=== PATIENT | male | born 1990 | race Caucasian/White ===

== ENCOUNTER 2018-11-19 18:43 | Emergency (ER) | payer OTHER ==
[2018-11-19 18:58] VITALS: BP 155/106
--- NOTE | 2018-11-19 19:26 | EDPHY ---
H & P Stated Complaint: L lower back pain, spasm Time Seen by Provider: 11/19/18 19:17 HPI/ROS: CHIEF COMPLAINT: Left paraspinous lumbar pain times 5 days HISTORY OF PRESENT ILLNESS: 28-year-old male generally healthy complaining of left paraspinous lumbar pain for the past 5 days after he slept on a futon. He woke with back pain which became progressively worse, exacerbated after snowboarding however no direct trauma or fall to his back. No paresthesia. No incontinence or retention. No saddle anesthesia. No radiculopathy. He has not taken any Tylenol Motrin for his discomfort. REVIEW OF SYSTEMS: PAST MEDICAL & SURGICAL HISTORY: No pertinent medical or surgical history SOCIAL HISTORY: Nonsmoker. PHYSICAL EXAM (Prior to examination, patient consented to physical exam, hands were washed and my usual and customary physical exam procedures followed) 1) GENERAL: Well-developed, well-nourished, alert and oriented. Appears uncomfortable when he is asked to move or perform range of motion at the waist. He prefers laying supine, flat. 2) HEAD: Normocephalic, atraumatic 3) HEENT: Pupils equal, round, reactive to light bilaterally. Sclera anicteric. Nasopharynx, oropharynx, clear, no lesions. 4) NECK: Full range of motion, no meningeal signs. 5) LUNGS: Clear auscultation bilaterally, no wheezes, no rhonchi, no retractions. 6) HEART: Regular rate and rhythm, no murmur, no heave, no gallop. 7) ABDOMEN: No guarding, no rebound, no focal tenderness, negative McBurney's, negative Savage's, negative Rovsing's, negative peritoneal sign, 8) MUSCULOSKELETAL: Moving all extremities, no focal areas of tenderness, no obvious trauma. No peripheral edema or discoloration. 9) BACK: tender to palpation left paraspinous muscle. No CVA tenderness, no midline vertebral tenderness, no fluctuance, no step-off, no obvious trauma, no visual or palpable abnormality. Patella, Achilles reflexes intact to bilateral strength 5/5 10) SKIN: No rash, no petechiae. 11) NEURO: Awake, alert, and oriented to person, place and time. Answers questions appropriately. There were no obvious focal neurologic abnormalities. No cerebellar dysfunction. Normal steady gait. Upper and lower extremities bilaterally with strength 5 / 5, reflexes 2+.. DIFFERENTIAL DIAGNOSIS: In no particular order, including but not limited to, fracture, sprain/strain, cauda equina, spinal infectious etiology. MEDICAL DECISION MAKING Lower index of suspicion for cauda equina, epidural abscess, epidural hematoma, lumbar myositis, diskitis, as the patient is neurologically intact in the lower extremities, has patella and Achilles reflexes intact and equal bilaterally, has no neurologic deficits, no incontinence, no retention, no midline pain, no fluctuance, afebrile, no flulike symptoms. Pain may be secondary to muscular strain, may be secondary to discogenic etiology. At this point I do not identify definitive indication for emergent MRI, however patient may necessitate this on an outpatient basis. Patient given acute back pain precautions. Patient verbalizes understanding of discharge instructions. I believe him to be be a competent decision-maker. Given prescription for Flexeril, Medrol Dosepak, work note, primary care provider referral. All questions and concerns have been addressed by me. Ample opportunity for questions have been provided . The patient understands that this diagnosis is provisional and can never be 100% accurate. Usual and customary warnings were given concerning the clinical impression and all the patient's questions were answered. The patient was instructed to return to the emergency department should her symptoms worsen or return, or develop any new symptoms, otherwise to followup as directed in discharge instructions. Care of patient under supervision of secondary supervising physician Dr Fajardo . - Personal History Current Tetanus/Diphtheria Vaccine: Unsure Current Tetanus Diphtheria and Acellular Pertussis (TDAP): Unsure - Medical/Surgical History Hx Asthma: No Hx Chronic Respiratory Disease: No Hx Diabetes: No Hx Cardiac Disease: No Hx Renal Disease: No Hx Cirrhosis: No Hx Alcoholism: No Hx HIV/AIDS: No Hx Splenectomy or Spleen Trauma: No - Social History Smoking Status: Never smoked Constitutional: Initial Vital Signs Temperature (C) 37 C 11/19/18 18:54 Heart Rate 79 11/19/18 18:54 Respiratory Rate 18 11/19/18 18:54 Blood Pressure 155/106 H 11/19/18 18:54 O2 Sat (%) 96 11/19/18 18:54 O2 Delivery Mode Room Air Allergies/Adverse Reactions: No Known Allergies Allergy (Unverified 11/19/18 18:57) Home Medications: Medication Instructions Recorded Cyclobenzaprine [Flexeril 10 MG 10 mg PO TID #15 tab 11/19/18 (RX)] methylPREDNISolone [Medrol Dose 4 mg PO DAILY #1 ea 11/19/18 Robin] Departure - Departure Disposition: Home, Routine, Self-Care Clinical Impression: Low back pain Qualifiers: Chronicity: acute Back pain laterality: left Sciatica presence: without sciatica Qualified Code(s): M54.5 - Low back pain Condition: Good Instructions: Back Pain (ED) Additional Instructions: Seek medical attention if you develop new or worsening pain, if you develop bladder or bowel dysfunction, numbness around your perineum, foot drop, or any other symptoms that concern you. Referrals: Annamarie Silva MD [Medical Doctor] - 2-3 days, call for appt. Stand Alone Forms: Work Excuse Prescriptions: Cyclobenzaprine [Flexeril 10 MG (RX)] 10 mg PO TID #15 tab methylPREDNISolone [Medrol Dose Robin] 4 mg PO DAILY #1 ea
== END 2018-11-19 19:46 | disposition home or self-care (01) ==
DX: M54.5 Low back pain (principal)